=== PATIENT | female | born 1970 | race Caucasian/White ===

== ENCOUNTER → 2017-10-30 08:13 | Outpatient (CLI) | payer OTHER, MEDICAID, SELFPAY ==
--- NOTE | 2017-10-30 08:18 | DI.US.S_ITS ---
PROCEDURE: US OB >= 14 WEEKS FETUS INDICATIONS: ANATOMY OUTSIDE/PRIOR DATING DATA: Last menstrual period (LMP): 06/05/17. LMP-based estimated date of delivery (CHIQUITA): 02/26/18 First dating scan (date and location): 10/30/17 Estimated date of delivery (CHIQUITA) from first dating scan: 02/13/18. TECHNIQUE: Real-time scanning was performed of the fetus, with image documentation and biometric measurements. Endovaginal scanning: No COMPARISON: None. FINDINGS: General: A single living intrauterine gestation is present. Presentation: Breech. Placenta: Placental position is anterior, without previa. Amniotic fluid index: 13.6 cm, normal range is 5-24 cm. heart rate: 137 beats per minute beats per minute. Maternal cervical canal: 4.0 cm long. Normal lower limit is 2.5 cm. biometrics: Biparietal diameter: 24 weeks 5 days Head circumference: 25 weeks Abdominal circumference: 25 weeks 3 days Femur length: 24 weeks Estimated gestational age from initial scan: not applicable. Composite gestational age from present scan: 24 weeks 6 days Estimated weight and percentile: 739 g; 99 percentile Measurement variability for biometric dating: +/- 7 days from 14 weeks to 15 weeks 6 days gestation, +/- 10 days from 16 weeks to 21 weeks 6 days gestation, +/- 2 weeks from 22 weeks to 27 weeks 6 days gestation, +/- 3 weeks for 28 weeks gestation or later. weight reference: 4500 g or EFW >90/95% is considered macrosomia or large for gestational age. EFW <10% is small for gestational age. EFW 5% or less is considered intra-uterine growth restriction. Anatomic survey: Neuro: Ventricles are non-dilated at less than 10 mm. Cisterna magna is normal at 3-11 mm. Cerebellum is normal in size and morphology. Nuchal skin fold: Normal at less than 6 mm between 14-21 weeks gestational age. Face: Nose and lips, facial profile are normal. Spine: No evidence for spina bifida. Heart: 4-chambered heart is present, with normal ventricular outflow tracts. Diaphragm: Diaphragm is intact. Stomach: Left-sided stomach is present. Kidneys: No hydronephrosis. Normal is less than 5 mm in 2nd trimester, less than 7 mm in 3rd trimester. Cord: 3-vessel cord has orthotopic insertion. Bladder: Normal in size. Extremities: All 4 extremities identified. IMPRESSION: 1. Single living IUP present with composite age of 24 weeks 6 days corresponding to ultrasound CHIQUITA of 02/13/18. 2. Normal anatomic survey. Dictated by: Bryson Orozco [facility] Interpreted: Stephanie Reyna MD on 10/30/2017 at 10:30 Approved by: Stephanie Reyna M.D. on 10/30/2017 at 11:21
== END ==
PROVIDERS: PCP Obstetrics & Gynecology; Visit Provider Obstetrics & Gynecology
DX: Z34.92 Encounter for supervision of normal pregnancy, unspecified, second trimester (principal); Z36.89 Encounter for other specified antenatal screening; Z3A.24 24 weeks gestation of pregnancy
CPT/HCPCS: 76811

== ENCOUNTER → 2017-11-28 13:08 | Outpatient (CLI) | payer OTHER, MEDICAID, SELFPAY ==
[2017-11-28 14:39] LABS: Add Manual Diff / Slide Review NO; Basophils Percent Auto 0.6 % (0-2); Eosinophils Percent Auto 0.7 % (2-4); Hemoglobin 12.5 g/dL (12.0-16.0); Mean Corpuscular HGB Conc 34.6 % (30-36); Mean Corpuscular Hemoglobin 31.8 PG (26-34); Mean Corpuscular Volume 91.9 fL (80-100); Neutrophils Absolute Auto 6900 /uL (3000-5900); Neutrophils Percent Auto 77.7 % (50-75); Platelet Count 241 X10^3/uL (150-400); Red Blood Cell Count 3.92 X10^6/uL (4.0-5.2); Red Cell Distribution Width 12.7 % (11.6-14.8); White Blood Cell Count 8.8 X10^3/uL (4.5-11.0)
[2017-11-28 15:15] LABS: GTT (PREG) 1 Hour PP 50gm Dose 139 mg/dL (76-139)
[2017-11-28 15:52] LABS: Hepatitis B Surface Antigen NEGATIVE s/c (NEGATIVE); Rubella Antibody IgG 3.3 IU/mL (>15)
[2017-11-28 16:09] LABS: HIV 1 and 2 Antibody NEGATIVE (NEGATIVE); Hep C Virus Ab w/Reflex Quant NEGATIVE s/c (NEGATIVE)
[2017-11-30 14:15] LABS: HSV 2 IGG AB 9.76 index (< 0.90); HSV1IGG < 0.90 index (< 0.90)
[2017-12-04 09:54] LABS: Rapid Plasma Reagin NON-REACTIVE
== END ==
PROVIDERS: PCP Obstetrics & Gynecology; Visit Provider Obstetrics & Gynecology
DX: Z3A.24 24 weeks gestation of pregnancy (principal); Z34.92 Encounter for supervision of normal pregnancy, unspecified, second trimester; Z34.91 Encounter for supervision of normal pregnancy, unspecified, first trimester
CPT/HCPCS: 80055; 82950; 86695; 86696; 86703; 86787; 86803; 86850; 86900; 86901

== ENCOUNTER → 2018-01-09 10:55 | Outpatient (CLI) | payer OTHER, MEDICAID, SELFPAY ==
[2018-01-10 21:22] LABS: Strep Grp B PCR NEG for Grp B Strep
== END ==
PROVIDERS: PCP Obstetrics & Gynecology; Visit Provider Obstetrics & Gynecology
DX: Z34.83 Encounter for supervision of other normal pregnancy, third trimester (principal); Z3A.35 35 weeks gestation of pregnancy
CPT/HCPCS: 87653

== ENCOUNTER 2018-02-05 00:01 | Observation (INO) | payer OTHER, MEDICAID, SELFPAY | END 2018-02-05 02:35 | disposition home or self-care (01) | PROVIDERS: Admitting Provider Family Medicine; PCP Obstetrics & Gynecology; Visit Provider Family Medicine | DX: O09.813 Supervision of pregnancy resulting from assisted reproductive technology, third trimester (principal); Z3A.37 37 weeks gestation of pregnancy | CPT/HCPCS: 59025; 84112; G0378; G0379 ==

== ENCOUNTER 2018-02-05 03:17 | Inpatient (IN) | payer OTHER, MEDICAID, SELFPAY ==
[2018-02-05 04:13] LABS: Add Manual Diff / Slide Review NO; Basophils Percent Auto 0.3 % (0-2); Eosinophils Percent Auto 1.2 % (2-4); Hematocrit 39.4 % (36-46); Hemoglobin 13.2 g/dL (12.0-16.0); Lymphocytes Percent Auto 14.6 % (25-40); Mean Corpuscular HGB Conc 33.6 % (30-36); Mean Corpuscular Hemoglobin 29.8 PG (26-34); Mean Corpuscular Volume 88.5 fL (80-100); Neutrophils Absolute Auto 10500 /uL (3000-5900); Neutrophils Percent Auto 77.9 % (50-75); Platelet Count 248 X10^3/uL (150-400); Red Blood Cell Count 4.45 X10^6/uL (4.0-5.2); White Blood Cell Count 13.5 X10^3/uL (4.5-11.0)
[2018-02-05] MEDS: LACTATED RINGERS 1,000 ML 100 ML IV ×2 (04:30→10:58)
[2018-02-05] MEDS: CEFAZOLIN 2 GM/100 ML FROZ.PIGGY IV (04:33)
--- NOTE | 2018-02-05 05:07 | SUR.OPER ---
Supine on Padded OR bed, head on pillow, safety belt at thigh, arms secured on padded arm boards at <90 degrees abduction. Bump under right buttock. Legs uncrossed with pillow under knees, gel pad to heels, tape over blanket to lower legs.
--- NOTE | 2018-02-05 05:09 | SUR.OPER ---
male at 0457. 8/9
[2018-02-05 05:37] VITALS: BP 119/66; PULSE 86; RESP 13; TEMP 36.8; O2SAT 99
[2018-02-05 05:40] VITALS: BP 115/67; PULSE 87; RESP 14; TEMP 36.8; O2SAT 100
[2018-02-05 05:45] VITALS: BP 99/71; PULSE 80; RESP 15; TEMP 36.8; O2SAT 100
[2018-02-05 05:55] VITALS: BP 101/65; PULSE 88; RESP 18; TEMP 36.8; O2SAT 100
[2018-02-05 08:48] VITALS: BP 106/64
[2018-02-05] MEDS: KETOROLAC 30 MG/ML VIAL IV ×2 (10:56→17:13)
--- NOTE | 2018-02-05 20:04 | PM.PREOP ---
Pre-operative Note Interval Note Pre-op Check: Yes History & Physical exam performed today by Physician Changes: No
--- NOTE | 2018-02-05 20:04 | PM.GYNOP.1 ---
Operative Date/Time/Diagnoses Date of procedure: 02/05/18 Time of procedure: 05:40 Pre-op diagnosis: 38 weeks gestation Hand presentation Post-op diagnosis: same Procedure: Procedures Operation Date: 02/05/18 04:55 Actual Procedures Side Surgeon p Section Natividad Jimenez MD Indications: 38 weeks gestation Hand and arm presentation Surgeon: Natividad Jimenez Mental Health Orderly: Matthieu Hernandez Anesthesia Type: Spinal Operative Notes Findings: Live male Transverse lie with left arm in the vagina Normal uterus, left tube and ovary Right tube and ovary previously removed Closure Type: primary Specimen(s): other (Cord bloods, placenta) Applied: catheter Estimated blood loss (mL): 500 Blood products transfused: none Procedure in detail: The patient was taken to the operating room where she was placed in the seated position. Spinal anesthesia was administered. She was then placed in the dorsal supine position with a leftward tilt. She was prepped and draped in the usual sterile fashion. A timeout was performed. After spinal analgesia was found to be adequate, a Pfannenstiel skin incision was made 2 fingerbreadths above the pubic symphysis and carried through to the underlying layer fascia. The fascia was nicked in the midline, and the incision extended bilaterally with the Villalba scissors. The superior aspect of the fascial incision was grasped with a Mi clamps, elevated, and the underlying rectus muscles dissected off sharply and bluntly. Attention was then turned to the inferior aspect of this incision which in a similar fashion was grasped with a Mi clamps, elevated, and the underlying rectus muscles dissected off sharply and bluntly. The rectus muscles were in the midline. The peritoneum was identified, grasped between 2 hemostats, and entered sharply with the Metzenbaum scissors. This incision was extended superiorly and inferiorly with good visualization of the bladder. The bladder blade was inserted. The vesicouterine peritoneum was identified, grasped with the pickup, and entered sharply with the Metzenbaum scissors. This incision was extended bilaterally, and the bladder flap was created digitally. The bladder blade was reinserted. The lower uterine segment was incised in a transverse fashion with the scalpel. Upon entering the amniotic sac there was a small amount of meconium-stained amniotic fluid. The infant was found to be in the transverse lie with head to the mother's left, left arm and hand in the vagina, feet in the right upper quadrant. The feet were grasped and the baby was delivered by breech extraction. The nose and mouth were suctioned with bulb suction. The cord was double clamped and cut. The was handed off to waiting RN and RT. The placenta was delivered manually. The uterus was cleared of all clots and debris. The uterine incision was repaired with #1 chromic in a running interlocking fashion, and a second layer the same suture was used for an imbricating layer. The stasis was achieved. The left tube and ovary was examined and was found to be normal. The gutters were cleared of all clots and debris. The bladder flap was reapproximated using 2-0 Vicryl in a running fashion. The parietal peritoneum was closed using 2-0 Vicryl in a running fashion. The fascia was reapproximated using 0 Vicryl in a running fashion. Subcutaneous layer was copiously irrigated with warm normal saline. 5 simple interrupted sutures of 3-0 Vicryl were placed to reapproximate the subcutaneous layer. The skin was closed with 4-0 undyed Vicryl in a subcuticular fashion. Steri-Strips were placed. An Aquacel dressing was placed. The uterus was expressed of a small amount of old blood. Sponge, lap, and instrument counts were correct x-2. The patient tolerated the procedure well, and was taken to PACU in stable condition. Complications: none Post-operative Condition: stable Disposition: PACU Plan for aftercare: To Center after recovery
[2018-02-06] MEDS: IBUPROFEN 200 MG TABLET 600 MG PO (05:52)
[2018-02-06] MEDS: MAG HYDROX/ALUM/SIMETH 30 ML UDC PO (05:54)
[2018-02-06 07:12] LABS: Hematocrit 26.1 % (36-46); Hemoglobin 8.8 g/dL (12.0-16.0)
--- NOTE | 2018-02-06 08:05 | P.PN_ITS ---
Subjective Date Patient Seen: 02/06/18 Time Patient Seen: 08:03 Interval history: Doing well no specific concerns. Vital signs stable throughout the evening. Past the congenital heart screening. TCB is 3.1. Baby 's blood type is A positive mom needs RhoGAM and MMR. Baby is breast feeding okay. Positive bowel movements positive urination. Exam Vital Signs (past 8 hours): Oxygen Delivery Method Room Air Narrative Exam Narrative: Gen.: Alert and oriented x3 no apparent distress. HEENT: NCAT PERRLA tympanic membranes are clear nares are patent oral mucosa is moist no tonsillar hypertrophy neck is supple without lymphadenopathy no thyroid enlargement. Cardio: S1-S2 regular rate and rhythm no murmurs appreciated. Respiratory: Lungs are clear to auscultation no wheezes or crackles normal respiratory effort. Abdomen: Soft nontender no rebound or guarding no liver spleen enlargement no appreciable hernias Extremities: Full range of motion no appreciable weakness no cyanosis or edema. Neurologic: Grossly intact. Objective Labs Result Diagrams: 02/06/18 06:37 Labs: Laboratory Results - last 24 hr 02/06/18 02/06/18 06:37 06:37 Hgb 8.8 L Hct 26.1 L Maternal Bleed Negative Assessment & Plan Plan: Assessment/Plan Narrative: Term infant doing well. Breast-feeding is going good. Weight today 6 lb 4.4 oz. Weight yesterday 612. Breast-feeding is going okay positive bowel movement urination. Continue with care. Anticipate discharge tomorrow
[2018-02-06 14:49] VITALS: BP 106/64; PULSE 88; RESP 18; TEMP 36.8
[2018-02-06] MEDS: RHO(D) IMMUNE GLOBULIN 1,500 UNIT SYRINGE 1500 UNIT IM (14:49)
[2018-02-06] MEDS: MEASLES,MUMPS,RUBELLA VACC/PF 0.5 ML VIAL SUBCUT (14:50)
--- NOTE | 2018-02-07 03:25 | PM.OBDS.1 ---
Discharge Providers Date of admission: 02/05/18 03:17 Primary care physician: Natividad Jimenez MD Consults: 02/05/18 08:02 Consult to [employer] Routine Comment: Discharge provider: Natividad Jimenez MD Discharge Date: 02/06/18 Summary Date Patient Seen: 02/06/18 Time Patient Seen: 13:45 Hospital Course: Patient is a 47-year-old 6 para 4 at 37-,5/7 weeks gestation who presented with ruptured membranes and an arm and hand presentation. She underwent a primary low-transverse section under spinal anesthesia without complication. Her postoperative course was unremarkable and she was discharged home on postop day # 1 to 2 doing very well. was going well. Patient was taking ibuprofen and Tylenol only for pain. She was tolerating a diet. She had voided without the catheter. Peripartum Data Delivery Method: Section Laceration description: None Episiotomy description: None Procedures: Urgent primary low-transverse section Spinal anesthesia complications: none Discharge Diagnosis (1) 37 weeks gestation of : Status: Acute (2) Elderly multigravida: Status: Acute (3) Malpresentation of fetus: Status: Acute (4) S/P primary low transverse : Status: Acute Status at Discharge Functional status at discharge: independent ambulation Overall status at discharge: patient is progressing back to baseline Time Spent with Patient Total time spent providing and/or coordinating discharge services: Less than 30 minutes Objective Labs Result Diagrams: 02/06/18 06:37 Labs: Laboratory Results - last 24 hr 02/06/18 02/06/18 06:37 06:37 Hgb 8.8 L Hct 26.1 L Maternal Bleed Negative Discharge Plan Discharge Plan Patient Disposition: Home Discharge comment: Call with fever, chills, redness or drainage around incision or bleeding vaginally more than a pad in an hour Discharge Med Rec/Prescriptions Prescriptions: No Action No Known Home Medications RF: 0 Follow up/Referrals: Natividad Jimenez MD [Primary Care Provider] - 02/13/18 9:30 am (To see Dr Jimenez on February 13 at 0930am for dressing removal) Provider Discharge Instructions Diet: Diet as Tolerated Activity: No heavy lifting No intercourse Skin/Wound/Dressing Care Report to your healthcare provider any signs of infection, such as:: chills, fever, increased pain and unusual drainage Dressing: Do not remove Visit Report/Discharge Packet Instructions: DI for Stand Alone Forms: Discharge: Care Visit Report Forms: Stroke Signs & Symptoms Discharge Data Primary Care Provider: Natividad Jimenez Attending Provider: Natividad Jimenez Admit Date/Time: 02/05/18 03:17 Discharges patient from system. Discharge Date/Time: 02/06/18 16:00
--- NOTE | 2018-02-07 03:31 | PM.OBHP.1 ---
OB HPI Date/Time Date of admission: 02/05/18 Date Patient Seen: 02/05/18 Time Patient Seen: 03:45 History of Present Condition Chief complaint: labor&delivery : 6 Para: 4 Estimated Date of Delivery: 02/21/18 Estimated Gestational Age (weeks): 37+5 Narrative: Mari Ruelas is a 47 year old female 6 para 4 at 37 and 5 7th weeks gestation who presented with ruptured membranes and an arm/hand presentation Indications Operative indications ( section): malpresentation (Arm/hand presentation) Other reason(s) for admission: Spontaneous rupture of membranes History of Present care: good care, initiated at week # (25 here, prior care) and number of visits (6 in [place]) Dating criteria: LMP confirmed by 1st trimester US Ultrasounds: normal 1st trimester US and normal mid trimester US Obstetrical complications: other (Advanced maternal age) Medical complications: none Preadmission Labs Blood type: B (-) negative -: Antibody screen: negative, GBS status: negative, HBsAG: negative, HIV: negative, HSV 1: negative, HSV 2: positive and RPR/VDLR: negative -: Rubella: not immune and Varicella: not immune HCAB: negative Cell-free DNA: Normal Prior (ies) History: 4 1 ectopic resulting in RSo Evaluation Evaluation Baseline heart rate: 140 Variability: Moderate (11-25) monitor accelerations: Present monitor decelerations: Absent Contraction Frequency (minutes): 5 Uterine Contraction Intensity: Moderate Category of Tracing: I Cervical dilation (cm): 6 station: +1 Laboratory results: Laboratory Tests 02/05/18 02/05/18 02/06/18 03:55 03:55 06:37 WBC 13.5 H RBC 4.45 Hgb 13.2 8.8 L Hct 39.4 26.1 L MCV 88.5 MCH 29.8 MCHC 33.6 RDW 13.0 Plt Count 248 Neut % (Auto) 77.9 H Lymph % (Auto) 14.6 L Swift % (Auto) 6.0 Eos % (Auto) 1.2 L Baso % (Auto) 0.3 Neut # (Auto) 31423 H Blood Type B Negative Antibody Screen Positive Antibody Identification Anti-D Maternal Bleed 02/06/18 06:37 WBC RBC Hgb Hct MCV MCH MCHC RDW Plt Count Neut % (Auto) Lymph % (Auto) Swift % (Auto) Eos % (Auto) Baso % (Auto) Neut # (Auto) Blood Type Antibody Screen Antibody Identification Maternal Bleed Negative Non-invasive Membranes Rupture Test: positive [facility] Social History Smoking Status: Never smoker Meds Home Medications Medication Instructions Recorded Confirmed Type No Known Home Medications 02/05/18 02/05/18 History Allergies Allergy/AdvReac Type Severity Reaction Status Date / Time No Known Drug Allergies Allergy Verified 02/05/18 05:28 Exam Vital Signs (past 8 hours): Oxygen Delivery Method Room Air Narrative Exam Narrative: Generally: A well-developed, well-nourished female, moderate distress secondary to contractions Lungs: Clear to auscultation bilaterally Cardiovascular: Regular rate and rhythm Abdomen: Soft Fundal height: 40 cm Estimated weight 7 lb Vaginal exam: Arm and hand in the vagina Objective Labs Result Diagrams: 02/06/18 06:37 Labs: Laboratory Results - last 24 hr 02/06/18 02/06/18 06:37 06:37 Hgb 8.8 L Hct 26.1 L Maternal Bleed Negative Assessment and Plan (1) 37 weeks gestation of : Current visit: No Status: Acute (2) Elderly multigravida: Current visit: No Status: Acute (3) Malpresentation of fetus: Current visit: No Status: Acute (4) S/P primary low transverse : Current visit: No Status: Acute Plan: Assessment: 47-year-old 6 para 4 at 37 and 5 7th weeks gestation with now presentation with an arm and hand in the vagina In active labor Plan: Urgent Primary low-transverse section The risks, benefits, and alternatives to the procedure were explained to the patient. The risks including bleeding, infection, injury to the bowel, bladder, or ureters. She understands these risks and agrees to proceed. A full capital P AR-Q was held and consent form was signed.
--- NOTE | 2018-02-07 03:40 | P.HPOB_ITS ---
OB HPI Date/Time Date of admission: 02/05/18 Date Patient Seen: 02/05/18 Time Patient Seen: 03:45 History of Present Condition Chief complaint: labor&delivery : 6 Para: 4 Estimated Date of Delivery: 02/21/18 Estimated Gestational Age (weeks): 37+5 Narrative: Mari Ruelas is a 47 year old female 6 para 4 at 37 and 5 7th weeks gestation who presented with ruptured membranes and an arm/hand presentation Indications Operative indications ( section): malpresentation (Arm/hand presentation) Other reason(s) for admission: Spontaneous rupture of membranes History of Present care: good care, initiated at week # (25 here, prior care) and number of visits (6 in [place]) Dating criteria: LMP confirmed by 1st trimester US Ultrasounds: normal 1st trimester US and normal mid trimester US Obstetrical complications: other (Advanced maternal age) Medical complications: none Preadmission Labs Blood type: B (-) negative -: Antibody screen: negative, GBS status: negative, HBsAG: negative, HIV: negative, HSV 1: negative, HSV 2: positive and RPR/VDLR: negative -: Rubella: not immune and Varicella: not immune HCAB: negative Cell-free DNA: Normal Prior (ies) History: 4 1 ectopic resulting in RSo Evaluation Evaluation Baseline heart rate: 140 Variability: Moderate (11-25) monitor accelerations: Present monitor decelerations: Absent Contraction Frequency (minutes): 5 Uterine Contraction Intensity: Moderate Category of Tracing: I Cervical dilation (cm): 6 station: +1 Laboratory results: Laboratory Tests 02/05/18 02/05/18 02/06/18 03:55 03:55 06:37 WBC 13.5 H RBC 4.45 Hgb 13.2 8.8 L Hct 39.4 26.1 L MCV 88.5 MCH 29.8 MCHC 33.6 RDW 13.0 Plt Count 248 Neut % (Auto) 77.9 H Lymph % (Auto) 14.6 L [place] % (Auto) 6.0 Eos % (Auto) 1.2 L Baso % (Auto) 0.3 Neut # (Auto) 14654 H Blood Type B Negative Antibody Screen Positive Antibody Identification Anti-D Maternal Bleed 02/06/18 06:37 WBC RBC Hgb Hct MCV MCH MCHC RDW Plt Count Neut % (Auto) Lymph % (Auto) [place] % (Auto) Eos % (Auto) Baso % (Auto) Neut # (Auto) Blood Type Antibody Screen Antibody Identification Maternal Bleed Negative Non-invasive Membranes Rupture Test: positive [facility] Social History Smoking Status: Never smoker Meds Home Medications Medication Instructions Recorded Confirmed Type No Known Home Medications 02/05/18 02/05/18 History Allergies Allergy/AdvReac Type Severity Reaction Status Date / Time No Known Drug Allergies Allergy Verified 02/05/18 05:28 Exam Vital Signs (past 8 hours): Oxygen Delivery Method Room Air Narrative Exam Narrative: Generally: A well-developed, well-nourished female, moderate distress secondary to contractions Lungs: Clear to auscultation bilaterally Cardiovascular: Regular rate and rhythm Abdomen: Soft Fundal height: 40 cm Estimated weight 7 lb Vaginal exam: Arm and hand in the vagina Objective Labs Result Diagrams: 02/06/18 06:37 Labs: Laboratory Results - last 24 hr 02/06/18 02/06/18 06:37 06:37 Hgb 8.8 L Hct 26.1 L Maternal Bleed Negative Assessment and Plan (1) 37 weeks gestation of : Current visit: No Status: Acute (2) Elderly multigravida: Current visit: No Status: Acute (3) Malpresentation of fetus: Current visit: No Status: Acute (4) S/P primary low transverse : Current visit: No Status: Acute Plan: Assessment: 47-year-old 6 para 4 at 37 and 5 7th weeks gestation with now presentation with an arm and hand in the vagina In active labor Plan: Urgent Primary low-transverse section The risks, benefits, and alternatives to the procedure were explained to the patient. The risks including bleeding, infection, injury to the bowel, bladder , or ureters. She understands these risks and agrees to proceed. A full capital P AR-Q was held and consent form was signed.
== END 2018-02-06 16:00 | disposition home or self-care (01) | DRG 540 ==
PROVIDERS: Admitting Provider Obstetrics & Gynecology; PCP Obstetrics & Gynecology; Visit Provider Obstetrics & Gynecology
PROC: 10D00Z1 Extraction of Products of Conception, Low, Open Approach (ICD-10-PCS; CPT 59514; principal; 2018-02-05 04:55)
DX: O60.14X0 Preterm labor third trimester with preterm delivery third trimester, not applicable or unspecified (principal); O32.2XX0 Maternal care for transverse and oblique lie, not applicable or unspecified; Z37.0 Single live birth; Z3A.37 37 weeks gestation of pregnancy
CPT/HCPCS: 36415; 59025; 59050; 59514; 84112; 85014; 85018; 85025; 85461; 86850; 86870; 86900; 86901; G0378; G0379; J0690; J1100; J1885; J2405; J2790

== ENCOUNTER 2018-02-08 20:56 | Emergency (ER) | payer OTHER, MEDICAID, SELFPAY ==
--- NOTE | 2018-02-08 21:08 | PC.NURSE ---
Attempted to triage pt. Currently . Requested to be triaged in approx 5-10 minutes.
[2018-02-08 21:34] VITALS: BP 123/71; PULSE 95; RESP 16; TEMP 36.8; O2SAT 97
--- NOTE | 2018-02-08 21:54 | PC.NURSE ---
Pt concerned that she has an infection at her csection incision. Pt states that there was redness extending beyond bandage and she had a fever earlier. On exam pt had surgical dressing in place,did not remove at this time. No redness noted.
--- NOTE | 2018-02-08 22:43 | ED.WOUNDLAC ---
HPI - Wound/Laceration General Chief Complaint: Wound/Laceration Stated Complaint: Possible infection csection incision Time Seen by Provider: 02/08/18 22:13 Source: patient Mode of arrival: ambulatory Limitations: no limitations History of Present Illness HPI narrative: Patient is a 47-year-old female who is 3 days post section here for concerns of an infected site. She states that she feels well. This morning she noticed redness on her lower abdomen. She also states that she had a fever of 100.5. No urinary symptoms. States that her vaginal bleeding is greatly improved from the surgery. Does not have any pain. No nausea vomiting. She states that she did send a picture to her OB provider of the redness of her abdomen. Patient told me that the OB provider told her that it would be unlikely for her to develop an infection this soon after the surgery however she should come to the emergency department to be evaluated. Related Data Home Medications Medication Instructions Recorded Confirmed No Known Home Medications 02/05/18 02/05/18 Allergies Allergy/AdvReac Type Severity Reaction Status Date / Time No Known Drug Allergies Allergy Verified 02/05/18 05:28 Review of Systems Constitutional Reports fever(s) (100.5) Cardiovascular Denies chest pain and Denies dyspnea Respiratory Denies dyspnea Gastrointestinal Gastrointestinal: Denies abdominal pain, Denies nausea and Denies vomiting Genitourinary Denies dysuria Musculoskeletal Denies myalgias and Denies arthralgias Integumentary/Breasts Comments: Redness of her lower abdomen Hematologic/Lymphatic Denies easy bleeding and Denies easy bruising [facility] Medical History Healthy adult (Acute) Surgical History No pertinent past surgical history (Acute) Social History Smoking Status: Never smoker Exam Initial Vital Signs Initial Vital Signs: Vital Signs Temperature 98.2 F 02/08/18 21:34 Pulse Rate 95 H 02/08/18 21:34 Respiratory Rate 16 02/08/18 21:34 Blood Pressure 123/71 02/08/18 21:34 Pulse Oximetry 97 02/08/18 21:34 Const General: cooperative, healthy appearing, comfortable, well developed, well groomed and No acute distress Resp Effort & Inspection: normal respiratory effort GI Inspection: non-distended Palpation: soft, No firm and No tender Skin Other: Patient with some increased redness on her lower abdomen left greater than right above the bandage that was placed after her . She did show me the picture from earlier today and the redness that is currently there is much improved from that picture. It is somewhat warm compared to the surrounding skin. After taking down the top portion of the surgical bandage the surgical incision looks well without any drainage. Steri-Strips are in place. Neuro General: alert, awake and oriented x3 Extrem General: normal to inspection and capillary refill normal Psych Appearance: grossly normal and well kempt Course Vital Signs - 8 hr 02/08/18 21:34 02/08/18 23:05 Temperature 98.2 F 98.7 F Pulse Rate 95 H 92 H Respiratory Rate 16 15 Blood Pressure 123/71 131/76 Pulse Oximetry 97 98 MDM - Wound/Laceration MDM Narrative Medical decision making narrative: Patient was afebrile here in the emergency department. Is nontoxic appearing. Does have a slight amount of redness in her left lower abdomen however it is much improved from the picture that she took earlier in the day. Both patient and her was at bedside stated that things were much improved from earlier. I did take down the top portion of the surgical dressing to look at the wound. The wound looks well. No drainage. I did discuss options with the patient to include antibiotics verses watching and waiting for the next 12-24 to 48 hr. I feel that given the fact that the redness has improved. The look of the surgical incision today. The lack of fever here in the emergency department that antibiotics would not be warranted at this time. I felt no crepitus around the area. The patient agrees with this. The patient's agrees with this. We did discuss return precautions. We did discuss things to watch out for to include worsening infections. Patient her both expressed understanding and agreement with plan Discharge Plan Departure Patient Disposition: Home Clinical Impression: Post-operative complication Discharge Date/Time: 02/08/18 23:06 Interventions: ED Discharge Assessment Last Done: 02/08/18 23:05 Activity Restrictions/Additional Instructions: The wound does not appear to be infected currently. If you have a return of the fevers or worsening pain or worsening redness or drainage from the wound you do need to return to the emergency department. Keep all of your scheduled medical appointments. Prescriptions: No Action No Known Home Medications RF: 0
[2018-02-08 23:05] VITALS: BP 131/76; PULSE 92; RESP 15; TEMP 37.1; O2SAT 98
== END 2018-02-08 23:06 | disposition home or self-care (01) ==
PROVIDERS: Emergency Provider Emergency Medicine; PCP Obstetrics & Gynecology
DX: G89.18 Other acute postprocedural pain (principal); Z98.890 Other specified postprocedural states
CPT/HCPCS: 99282; 99283

== ENCOUNTER → 2019-10-03 13:57 | Outpatient (CLI) | payer OTHER, MEDICAID, SELFPAY ==
--- NOTE | 2019-10-03 13:59 | DI.RAD.S_ITS ---
PROCEDURE: XR SHOULDER RT MIN 2V INDICATIONS: right shoulder pain TECHNIQUE: 3 views of the shoulder were acquired. COMPARISON: None. FINDINGS: Bones: No fractures or dislocations. No suspicious bony lesions. Visualized ribs appear intact. Soft tissues: No suspicious soft tissue calcifications. IMPRESSION: Minimal a.c. joint space thinning, no trauma found. Dictated by: Edward Cruz M.D. on 10/03/2019 at 15:06 Approved by: Edward Cruz M.D. on 10/03/2019 at 15:07
== END ==
PROVIDERS: PCP Obstetrics & Gynecology; Referring Provider Nurse Practitioner Family; Visit Provider Nurse Practitioner Family
DX: M25.511 Pain in right shoulder (principal); M12.811 Other specific arthropathies, not elsewhere classified, right shoulder
CPT/HCPCS: 73030

== ENCOUNTER 2019-11-26 07:30 | Outpatient (RCR) | payer OTHER, MEDICAID, SELFPAY ==
--- NOTE | 2019-11-05 18:17 | PT.OIE ---
Current Diagnoses Other specific arthropathies, not elsewhere classified, right shoulder (11/05/19) Pain in right shoulder (11/05/19) Muscle weakness (generalized) (11/05/19) Past Medical History (Last Updated 10/03/19 @ 13:59 by RUDDY Sosa) Healthy adult (Acute) Rotator cuff arthropathy of right shoulder (Acute) Past Surgical History (Last Reviewed 02/09/18 @ 03:23 by Biju Chu DO) No pertinent past surgical history (Acute) Visit Care Team Role Provider Type RUDDY Sosa Attending Provider Advanced Side Stitching Machine Operator Family Provider Primary Care Provider Referring Provider Specialty: Family Practice Address: [address] [place] [address], [facility] Email: [email or web address] Physical Therapy Initial Evaluation PT-OP-A Visit Information Start: 11/05/19 13:26 Freq: Status: Active Protocol: Document 11/05/19 13:35 LRN (Rec: 11/05/19 14:32 LRN [id number]) Out-Patient Physical Therapy Visit Information Visit Information Visit Type Initial Evaluation Visit Start Time 13:35 Visit Stop Time 14:16 Total Visit Minutes 41 Visit Number 1 Evaluation Information Evaluation Date 11/05/19 Precautions Precautions Hx of back pain PT-OP-B Current Condition Start: 11/05/19 13:26 Freq: Status: Active Protocol: Document 11/05/19 13:35 LRN (Rec: 11/05/19 14:32 LRN [id number]) Current Condition History of Current Condition Onset Date 07/2019. Current Complaints Constant R shoulder pain and not able to raise arm. History of Current Condition She is not able to raise her arm and the pain is constant. Insurance won't approve of MRI until PT done. Very painful to lift arm away from body, has throbbing down shoulder along lateral side and thumb. Usage of thumb is difficult due to pain and has strength loss of thumb when extracting at work. Gets tingling and parasthesia, and sometimes shooting pain down the arm. She notes the more she works, the less pain she notices. Worst pain is sleeping and waking in morning . Night pain is 6-7/10, during work 2-3/10. She hurts more at night, with throbbing pain. Has took IBP and used a Flector prescription (NSAID) patch and with a drink and felt much better. Slept for the first time well. She was initially given Naproxin and has been taking it with sometimes IBP for the last 3 weeks with no change in pain. IBP helps decrease pain. Has compensated so much that the muscles of the back have become tight. She states picking up her 20 month old baby up and putting on L side doesn't hurt. Not super painful to hold baby. No hx of MVA, neck injury, or shoulder dysfunction. Prior Treatments and Tests IBP, Naproxin. Self use of Flector (NSAID) patch. Future Testing and Treatments Planned Pt hoping for MRI after PT completed, if needed. 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 The incident occurred while off during Covid 19 pandemic. Has baby, 4 yr old and spouse at home. She has 3 older kids (ages 31, 30, and 29 yrs old) not at home. Treatment Goals Patient/Caregiver Goals Pt goal is: 1) get pain manageable, 2) decrease nighttime pain to 2-3/10 range , 3) reach out without pain, 4) know why she is having pain . Prior Functional Status Baseline Function- ADL's Independent Baseline Function- Mobility Independent Baseline Function- Work/School No difficulties. 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 Current Functional Impairments (Reported) Functional Limitations- ADL's Can't hold wgt of own arm out to side, can lift forward, but not over shoulder hgt. Neck feels tight on R side. Functional Limitations- Work/School Limited at work for reaching out to side. 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 PT-OP-C Subjective Start: 11/05/19 13:26 Freq: Status: Active Protocol: Document 11/05/19 13:35 LRN (Rec: 11/05/19 14:32 LRN [id number]) Patient Questionnaires Quick Dash- Upper Extremity Quick Dash UE Score 65.9 Quick Dash UE Impairment 60 to 79% Impaired (Score 60- 79) PT-OP-E Functional Tests Start: 11/05/19 13:26 Freq: Status: Active Protocol: Document 11/05/19 13:35 LRN (Rec: 11/05/19 17:14 LRN [id number]) Functional Tests Apley's Scratch Test Action 2- Left T4 Action 2- Right T2 Action 3- Left T7 Action 3- Right T12 PT-OP-H Neuro Start: 11/05/19 13:26 Freq: Status: Active Protocol: Document 11/05/19 13:35 LRN (Rec: 11/05/19 17:14 LRN [id number]) Deep Tendon Reflex & Clonus Assessment Deep Tendon Reflex Bilateral Brachioradialis Deep Tendon Reflex 1+ Diminished Bilateral Tricep Deep Tendon Reflex 1+ Diminished Bilateral Bicep Deep Tendon Reflex 0 Absent PT-OP-J Posture/Palpation/Skin Start: 11/05/19 13:26 Freq: Status: Active Protocol: Document 11/05/19 13:35 LRN (Rec: 11/05/19 14:32 LRN [id number]) Posture Evaluation Comments Posture Comments R shoulder is low and retracted. Mild Dowagers hump . Palpation Assessment Location R shoulder Palpation Location R shoulder Palpation Findings Muscle Guarding,Tenderness Palpation Details Supraspinatus is tight and mildly tender. Atrophy Rhomboids. PT-OP-K Range of Motion Start: 11/05/19 13:26 Freq: Status: Active Protocol: Document 11/05/19 13:35 LRN (Rec: 11/05/19 14:32 LRN [id number]) Cervical Spine Range of Motion Cervical Spine Active Degrees Testing Position Sitting Flexion 52 Extension 40 Rotation Left 52 Rotation Right 62 Lateral Flexion Left 38 Lateral Flexion Right 40 ROM Limitations Soft Tissue Tightness Shoulder Goniometric Range of Motion Shoulder Left Passive Shoulder ROM WFL Yes Testing Position Supine Flexion 180 Abduction 180 External Rotation at 90 degrees 100 Abduction Internal Rotation 58 Right Passive Shoulder ROM WFL No Testing Position Sitting Flexion 107 Abduction 70 External Rotation at 45 degrees 30 Abduction Internal Rotation 30 Left Active Shoulder ROM WFL Yes Flexion 180 Abduction 180 Internal Rotation Behind Back (text) T7 Right Active Shoulder ROM WFL No Testing Position Sitting Flexion 91 Abduction 65 Internal Rotation Behind Back (text) T12 Shoulder ROM Limitations Shoulder ROM Limitations Pain Comments R shoulder PROM for ER/IR is arm at 70 deg's AB. PT-OP-L Special Tests Start: 11/05/19 13:26 Freq: Status: Active Protocol: Document 11/05/19 13:35 LRN (Rec: 11/05/19 17:14 LRN [id number]) Special Tests Cervical Spine Special Tests Foraminal Compression Test Results Negative Comments No change in R shoulder pain. Traction Test Results Negative Comments No change in R shoulder pain. Shoulder Special Tests Drop Arm Rotator Cuff Test Results Positive Comments Pt is not able to lower R arm with control. Elevation Impingement Test Results Positive Comments Pain in R shoulder joint PT-OP-M Strength Start: 11/05/19 13:26 Freq: Status: Active Protocol: Document 11/05/19 13:35 LRN (Rec: 11/05/19 14:32 LRN [id number]) Shoulder Strength Shoulder Manual Muscle Testing Right Flexion 2 Poor Extension 5 Normal Abduction (C5) 2- Poor- Adduction 5 Normal External Rotation 2 Poor Internal Rotation 5 Normal Left Comments Generally 5/5 PT-OP-Q Treatments Start: 11/05/19 13:26 Freq: Status: Active Protocol: Document 11/05/19 13:35 LRN (Rec: 11/05/19 17:14 LRN [id number]) Self-Care/Home Management Treatment Education Patient Education Home Exercise Program Activities Self-Care/Home Management Activities Issued & reviewed HEP with handouts for: Neck AROM stretches for Rotation and SB; Shoulder: Rolls, Pendulum, IR stretch with towel and opposite hand, supine Flex and hands behind head ER, table stretch for ER. PT-OP-T Assessment and Plan Start: 11/05/19 13:26 Freq: Status: Active Protocol: Document 11/05/19 13:35 LRN (Rec: 11/05/19 14:32 LRN [id number]) Physical Therapy Assessment Rehab Potential Rehabilitation Potential Good Evaluation Complexity Number of Personal Factors/Comorbidities 1-2 Number of Body Systems Impaired 4 or More Clinical Presentation at Evaluation Evolving Impairments Impairments Activity Tolerance,Functional Activities,Pain,Posture,ROM, Soft Tissue Mobility,Strength Goals Four Impairment Decreased R shoulder strength for lifting and use of hand for work. Short Term Goal (STG) Pt will be able to lift a 1/2 gallon without pain. STG Duration 12/19/19 Online Project Manager Goal (LTG) Pt will be able to lift her baby or 1 gallon milk with minimal pain. LTG Duration 03/04/20 Three Impairment Decreased R shoulder mobility, pt unable to reach arm above shoulder hgt. Short Term Goal (STG) Pt will be able to reach her R shoulder above shoulder hgt ( at least 165 deg's) without pain. STG Duration 12/19/19 Retirement Goal (LTG) Pt will be able to reach out without pain. LTG Duration 03/04/20 Two Impairment R shoulder pain 7/, interfering with sleep without use of pain meds Short Term Goal (STG) Decrease R shoulder pain by 50 % with pt educated in nighttime positioning to decrease onset of pain. STG Duration 12/19/19 Online Project Manager Goal (LTG) Decrease R shoulder pain to a manageable level of 2-3/10 at nighttime. LTG Duration 03/04/20 One Impairment Pt lacks appropriate self care HEP. Online Project Manager Goal (LTG) Pt will be independent in a self care HEP. LTG Duration 03/04/20 Assessment Summary Assessment Pt presents guarded and very limited in R shoulder mobility . At this time the pt was not able to tolerate proper positioning for special testing to adequately assess her condition. She has presentation of a possible R rotator cuff dysfunction or guarding due to possible self shoulder dislocation as per her subjective history and complaints. Once the soft tissue dysfunction can be managed it will become more obvious the extent of her injury. The pt will benefit from skilled physical therapy at this time to reduce soft tissue dysfunction and for postural and activity awareness training. As the pt is able to gain greater mobility we will progress toward strengthening and stabilizing the shoulder. She will benefit from instruction in self care exercise for her neck to reduce the stress at the R shoulder. Physical Therapy Plan Frequency and Duration Frequency of Treatment 2x/Week Plan of Care Start Date 11/05/19 Plan of Care End Date 03/04/20 Therapeutic Interventions Therapeutic Interventions Home Exercise Program,Manual Therapy,Neuromuscular Re- education,Patient/Caregiver Education,Self-Care/Home Management,Soft Tissue Mobilization,Taping, Therapeutic Exercises Modalities Cold Pack/Ice Massage,Electric Stimulation,Hot Packs, Iontophoresis,Ultrasound Other Therapeutic Interventions Iontophoresis of 4mg/mL of Dexamethosone with Sodium Phosphate. Next Visit Focus/Plan Next Note Type Treatment Note Next Visit Plan MH to neck, R shoulder, back during PROM/AROM exercises. Review of last issued home exercises. Active or Isometric strengthening to start. If pt tolerates, assess GHJ mobility. Check sensation.
--- NOTE | 2019-11-05 18:18 | PT.OPPOC ---
Physical, Occupational & Speech Therapy At [facility] Current Diagnoses Other specific arthropathies, not elsewhere classified, right shoulder (11/05/19) Pain in right shoulder (11/05/19) Muscle weakness (generalized) (11/05/19) Visit Care Team Role Provider Type RUDDY Sosa Attending Provider Advanced Process Environmental Technician Family Provider Primary Care Provider Referring Provider Specialty: Family Practice Address: [address] [place] [address], [id number] Email: [email or web address] Plan Of Care PT-OP-T Assessment and Plan Start: 11/05/19 13:26 Freq: Status: Active Protocol: Document 11/05/19 13:35 LRN (Rec: 11/05/19 14:32 LRN [id number]) Physical Therapy Assessment Rehab Potential Rehabilitation Potential Good Evaluation Complexity Number of Personal Factors/Comorbidities 1-2 Number of Body Systems Impaired 4 or More Clinical Presentation at Evaluation Evolving Impairments Impairments Activity Tolerance,Functional Activities,Pain,Posture,ROM, Soft Tissue Mobility,Strength Goals Four Impairment Decreased R shoulder strength for lifting and use of hand for work. Short Term Goal (STG) Pt will be able to lift a 1/2 gallon without pain. STG Duration 12/19/19 Atmospheric Physics Professor Goal (LTG) Pt will be able to lift her baby or 1 gallon milk with minimal pain. LTG Duration 03/04/20 Three Impairment Decreased R shoulder mobility, pt unable to reach arm above shoulder hgt. Short Term Goal (STG) Pt will be able to reach her R shoulder above shoulder hgt ( at least 165 deg's) without pain. STG Duration 12/19/19 Atmospheric Physics Professor Goal (LTG) Pt will be able to reach out without pain. LTG Duration 03/04/20 Two Impairment R shoulder pain 7/10, interfering with sleep without use of pain meds Short Term Goal (STG) Decrease R shoulder pain by 50 % with pt educated in nighttime positioning to decrease onset of pain. STG Duration 12/19/19 Assisted Goal (LTG) Decrease R shoulder pain to a manageable level of 2-3/10 at nighttime. LTG Duration 03/04/20 One Impairment Pt lacks appropriate self care HEP. Atmospheric Physics Professor Goal (LTG) Pt will be independent in a self care HEP. LTG Duration 03/04/20 Assessment Summary Assessment Pt presents guarded and very limited in R shoulder mobility . At this time the pt was not able to tolerate proper positioning for special testing to adequately assess her condition. She has presentation of a possible R rotator cuff dysfunction or guarding due to possible self shoulder dislocation as per her subjective history and complaints. Once the soft tissue dysfunction can be managed it will become more obvious the extent of her injury. The pt will benefit from skilled physical therapy at this time to reduce soft tissue dysfunction and for postural and activity awareness training. As the pt is able to gain greater mobility we will progress toward strengthening and stabilizing the shoulder. She will benefit from instruction in self care exercise for her neck to reduce the stress at the R shoulder. Physical Therapy Plan Frequency and Duration Frequency of Treatment 2x/Week Plan of Care Start Date 11/05/19 Plan of Care End Date 03/04/20 Therapeutic Interventions Therapeutic Interventions Home Exercise Program,Manual Therapy,Neuromuscular Re- education,Patient/Caregiver Education,Self-Care/Home Management,Soft Tissue Mobilization,Taping, Therapeutic Exercises Modalities Cold Pack/Ice Massage,Electric Stimulation,Hot Packs, Iontophoresis,Ultrasound Other Therapeutic Interventions Iontophoresis of 4mg/mL of Dexamethosone with Sodium Phosphate. Next Visit Focus/Plan Next Note Type Treatment Note Next Visit Plan MH to neck, R shoulder, back during PROM/AROM exercises. Review of last issued home exercises. Active or Isometric strengthening to start. If pt tolerates, assess GHJ mobility. Check sensation. Plan of Care Dates Plan of Care Start Date 11/05/19 Plan of Care End Date 03/04/20 Electronically Signed by: Kristen Byrd, PT 11/05/19 [id number] Please Sign and Return: I have reviewed this Plan of Care and certify that the skilled therapy services above are required to meet the patient?s needs. Physician Signature Date Printed Name and Credentials Clinical Instructor Signature Printed Name and Credentials
--- NOTE | 2019-11-19 11:25 | PT.OTN ---
Current Diagnoses Other specific arthropathies, not elsewhere classified, right shoulder (11/19/19) Pain in right shoulder (11/19/19) Muscle weakness (generalized) (11/19/19) Physical Therapy Treatment Note PT-OP-A Visit Information Start: 11/05/19 13:26 Freq: Status: Active Protocol: Document 11/19/19 09:47 MB (Rec: 11/19/19 10:31 MB [id number]) Out-Patient Physical Therapy Visit Information Visit Information Visit Type Treatment Note Visit Start Time 09:47 Visit Stop Time 10:30 Total Visit Minutes 43 Visit Number 2 PT-OP-B Current Condition Start: 11/05/19 13:26 Freq: Status: Active Protocol: Document 11/05/19 13:35 LRN (Rec: 11/05/19 14:32 LRN [id number]) Current Condition History of Current Condition Onset Date 07/2019. Current Complaints Constant R shoulder pain and not able to raise arm. History of Current Condition She is not able to raise her arm and the pain is constant. Insurance won't approve of MRI until PT done. Very painful to lift arm away from body, has throbbing down shoulder along lateral side and thumb. Usage of thumb is difficult due to pain and has strength loss of thumb when extracting at work. Gets tingling and parasthesia, and sometimes shooting pain down the arm. She notes the more she works, the less pain she notices. Worst pain is sleeping and waking in morning . Night pain is 6-7/10, during work 2-3/10. She hurts more at night, with throbbing pain. Has took IBP and used a Flector prescription (NSAID) patch and with a drink and felt much better. Slept for the first time well. She was initially given Naproxin and has been taking it with sometimes IBP for the last 3 weeks with no change in pain. IBP helps decrease pain. Has compensated so much that the muscles of the back have become tight. She states picking up her 20 month old baby up and putting on L side doesn't hurt. Not super painful to hold baby. No hx of MVA, neck injury, or shoulder dysfunction. Prior Treatments and Tests IBP, Naproxin. Self use of Flector (NSAID) patch. Future Testing and Treatments Planned Pt hoping for MRI after PT completed, if needed. 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 The incident occurred while off during Covid 19 pandemic. Has baby, 4 yr old and spouse at home. She has 3 older kids (ages 31, 30, and 29 yrs old) not at home. Treatment Goals Patient/Caregiver Goals Pt goal is: 1) get pain manageable, 2) decrease nighttime pain to 2-3/10 range , 3) reach out without pain, 4) know why she is having pain . Prior Functional Status Baseline Function- ADL's Independent Baseline Function- Mobility Independent Baseline Function- Work/School No difficulties. 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 Current Functional Impairments (Reported) Functional Limitations- ADL's Can't hold wgt of own arm out to side, can lift forward, but not over shoulder hgt. Neck feels tight on R side. Functional Limitations- Work/School Limited at work for reaching out to side. 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 PT-OP-C Subjective Start: 11/05/19 13:26 Freq: Status: Active Protocol: Document 11/19/19 09:47 MB (Rec: 11/19/19 10:31 MB [id number]) OP-PT Subjective Patient Comments Patient Comments Pt does not think that PT is going to help. She has pain down into her right wrist. She calls it right wrist tendinitis. The shoulder is about the same. It is much worse at night and when she wakes up. She is taking Ibuprofen. Pt is a dentist and has been for 30 years. The pain didn't stop until she stopped working d/t COVID. She was carrying around 30 lb son . Pt states that the pain started when she rolled over on her side in the bed. She felt her shoulder pop out and back. She has an orthopedic appointment on 11/27/2019. PT-OP-E Functional Tests Start: 11/05/19 13:26 Freq: Status: Active Protocol: Document 11/05/19 13:35 LRN (Rec: 11/05/19 17:14 LRN [id number]) Functional Tests Apley's Scratch Test Action 2- Left T4 Action 2- Right T2 Action 3- Left T7 Action 3- Right T12 PT-OP-H Neuro Start: 11/05/19 13:26 Freq: Status: Active Protocol: Document 11/05/19 13:35 LRN (Rec: 11/05/19 17:14 LRN [id number]) Deep Tendon Reflex & Clonus Assessment Deep Tendon Reflex Bilateral Brachioradialis Deep Tendon Reflex 1+ Diminished Bilateral Tricep Deep Tendon Reflex 1+ Diminished Bilateral Bicep Deep Tendon Reflex 0 Absent PT-OP-J Posture/Palpation/Skin Start: 11/05/19 13:26 Freq: Status: Active Protocol: Document 11/05/19 13:35 LRN (Rec: 11/05/19 14:32 LRN [id number]) Posture Evaluation Comments Posture Comments R shoulder is low and retracted. Mild Dowagers hump . Palpation Assessment Location R shoulder Palpation Location R shoulder Palpation Findings Muscle Guarding,Tenderness Palpation Details Supraspinatus is tight and mildly tender. Atrophy Rhomboids. PT-OP-K Range of Motion Start: 11/05/19 13:26 Freq: Status: Active Protocol: Document 11/05/19 13:35 LRN (Rec: 11/05/19 14:32 LRN [id number]) Cervical Spine Range of Motion Cervical Spine Active Degrees Testing Position Sitting Flexion 52 Extension 40 Rotation Left 52 Rotation Right 62 Lateral Flexion Left 38 Lateral Flexion Right 40 ROM Limitations Soft Tissue Tightness Shoulder Goniometric Range of Motion Shoulder Left Passive Shoulder ROM WFL Yes Testing Position Supine Flexion 180 Abduction 180 External Rotation at 90 degrees 100 Abduction Internal Rotation 58 Right Passive Shoulder ROM WFL No Testing Position Sitting Flexion 107 Abduction 70 External Rotation at 45 degrees 30 Abduction Internal Rotation 30 Left Active Shoulder ROM WFL Yes Flexion 180 Abduction 180 Internal Rotation Behind Back (text) T7 Right Active Shoulder ROM WFL No Testing Position Sitting Flexion 91 Abduction 65 Internal Rotation Behind Back (text) T12 Shoulder ROM Limitations Shoulder ROM Limitations Pain Comments R shoulder PROM for ER/IR is arm at 70 deg's AB. PT-OP-L Special Tests Start: 11/05/19 13:26 Freq: Status: Active Protocol: Document 11/05/19 13:35 LRN (Rec: 11/05/19 17:14 LRN [id number]) Special Tests Cervical Spine Special Tests Foraminal Compression Test Results Negative Comments No change in R shoulder pain. Traction Test Results Negative Comments No change in R shoulder pain. Shoulder Special Tests Drop Arm Rotator Cuff Test Results Positive Comments Pt is not able to lower R arm with control. Elevation Impingement Test Results Positive Comments Pain in R shoulder joint PT-OP-M Strength Start: 11/05/19 13:26 Freq: Status: Active Protocol: Document 11/05/19 13:35 LRN (Rec: 11/05/19 14:32 LRN [id number]) Shoulder Strength Shoulder Manual Muscle Testing Right Flexion 2 Poor Extension 5 Normal Abduction (C5) 2- Poor- Adduction 5 Normal External Rotation 2 Poor Internal Rotation 5 Normal Left Comments Generally 5/5 PT-OP-Q Treatments Start: 11/05/19 13:26 Freq: Status: Active Protocol: Document 11/19/19 09:47 MB (Rec: 11/19/19 11:25 MB [id number]) Therapeutic Exercises Sitting Exercises R shoulder range Comments Pt demonstrates active flexion right shoulder to 90 deg only Very gentle thoracic lift with right arm supported on pillow Comments Progress this with scapular retraction in the future Cervical flexion, extension, SB, rotation Side bilateral Comments Performed all directions with one plane movement at a time Self-Care/Home Management Treatment Education Other Education Proper sleeping positioning with cervical and arm support, possible use of wrist brace when sleeping to keep wrist and shoulder more neutral, use of ice on right shoulder in a .m., lunch break and in the evening--pt tolerates ice on right shoulder during education and she feels better . Ice on forearm including quick ice exacerbates right arm pain. PT ed pt in PT work- up, possible hyperlaxity contributing to possible right shoulder injury, reviewed shoulder, nerve, labral anatomy, possible orthopedic work-up diagonstics of right shoulder. Concern about cervical spine but given reports of right shoulder pooping out, likely shoulder involvement contributing to forearm symptoms--pt with a lot of anatomical knowledge and self-care awareness as a dentist. Discussed work posture and sitting on the couch with arm supported and letting 20 month old come to her rather than picking him up . PT-OP-T Assessment and Plan Start: 11/05/19 13:26 Freq: Status: Active Protocol: Document 11/19/19 09:47 MB (Rec: 11/19/19 10:31 MB [id number]) Physical Therapy Assessment Rehab Potential Rehabilitation Potential Good Evaluation Complexity Number of Personal Factors/Comorbidities 1-2 Number of Body Systems Impaired 4 or More Clinical Presentation at Evaluation Evolving Impairments Impairments Activity Tolerance,Functional Activities,Pain,Posture,ROM, Soft Tissue Mobility,Strength Goals Four Impairment Decreased R shoulder strength for lifting and use of hand for work. Short Term Goal (STG) Pt will be able to lift a 1/2 gallon without pain. STG Duration 12/19/19 Senior Care Goal (LTG) Pt will be able to lift her baby or 1 gallon milk with minimal pain. LTG Duration 03/04/20 Three Impairment Decreased R shoulder mobility, pt unable to reach arm above shoulder hgt. Short Term Goal (STG) Pt will be able to reach her R shoulder above shoulder hgt ( at least 165 deg's) without pain. STG Duration 12/19/19 Senior Care Goal (LTG) Pt will be able to reach out without pain. LTG Duration 03/04/20 Two Impairment R shoulder pain 7/10, interfering with sleep without use of pain meds Short Term Goal (STG) Decrease R shoulder pain by 50 % with pt educated in nighttime positioning to decrease onset of pain. STG Duration 12/19/19 Senior Care Goal (LTG) Decrease R shoulder pain to a manageable level of 2-3/10 at nighttime. LTG Duration 03/04/20 One Impairment Pt lacks appropriate self care HEP. 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 LTG Duration 03/04/20 Assessment Summary Assessment Pt states that her pain is getting worse. Exercises are not helpful. She reports tingling and throbbing down C6 dermatome right forearm. Pt is hypermobile in left elbow and states that she had hyperlaxity in . Extensive education to pt about positioning, icing, PT, possible work-up including diagnostic testing. PT is concerned about possible labral tear in setting of reports that her shoulder pops out with horizontal abduction . Physical Therapy Plan Frequency and Duration Frequency of Treatment 2x/Week Plan of Care Start Date 11/05/19 Plan of Care End Date 03/04/20 Therapeutic Interventions Therapeutic Interventions Home Exercise Program,Manual Therapy,Neuromuscular Re- education,Patient/Caregiver Education,Self-Care/Home Management,Soft Tissue Mobilization,Taping, Therapeutic Exercises Modalities Cold Pack/Ice Massage,Electric Stimulation,Hot Packs, Iontophoresis,Ultrasound Other Therapeutic Interventions Iontophoresis of 4mg/mL of Dexamethosone with Sodium Phosphate. Next Visit Focus/Plan Next Note Type Treatment Note Next Visit Plan Con't icing, as it helped during treatment. Focus on cervical range exercises, gentle scapular retraction with right arm supported. Active or Isometric strengthening If pt tolerates, assess GHJ mobility. Check sensation.
--- NOTE | 2019-11-26 08:11 | PT.OTN ---
Current Diagnoses Other specific arthropathies, not elsewhere classified, right shoulder (11/26/19) Pain in right shoulder (11/26/19) Muscle weakness (generalized) (11/26/19) Physical Therapy Treatment Note PT-OP-A Visit Information Start: 11/05/19 13:26 Freq: Status: Active Protocol: Document 11/26/19 07:31 MB (Rec: 11/26/19 08:11 MB [id number]) Out-Patient Physical Therapy Visit Information Visit Information Visit Type Treatment Note Visit Note 29' minute treatment d/t pt cannot tolerate therapy except for icing and education. Only charged for education, not for icing during education. Visit Start Time 07:31 Visit Stop Time 08:15 Total Visit Minutes 44 Visit Number 3 PT-OP-B Current Condition Start: 11/05/19 13:26 Freq: Status: Active Protocol: Document 11/05/19 13:35 LRN (Rec: 11/05/19 14:32 LRN [id number]) Current Condition History of Current Condition Onset Date 07/2019. Current Complaints Constant R shoulder pain and not able to raise arm. History of Current Condition She is not able to raise her arm and the pain is constant. Insurance won't approve of MRI until PT done. Very painful to lift arm away from body, has throbbing down shoulder along lateral side and thumb. Usage of thumb is difficult due to pain and has strength loss of thumb when extracting at work. Gets tingling and parasthesia, and sometimes shooting pain down the arm. She notes the more she works, the less pain she notices. Worst pain is sleeping and waking in morning . Night pain is 6-7/10, during work 2-3/10. She hurts more at night, with throbbing pain. Has took IBP and used a Flector prescription (NSAID) patch and with a drink and felt much better. Slept for the first time well. She was initially given Naproxin and has been taking it with sometimes IBP for the last 3 weeks with no change in pain. IBP helps decrease pain. Has compensated so much that the muscles of the back have become tight. She states picking up her 20 month old baby up and putting on L side doesn't hurt. Not super painful to hold baby. No hx of MVA, neck injury, or shoulder dysfunction. Prior Treatments and Tests IBP, Naproxin. Self use of Flector (NSAID) patch. Future Testing and Treatments Planned Pt hoping for MRI after PT completed, if needed. 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 The incident occurred while off during Covid 19 pandemic. Has baby, 4 yr old and spouse at home. She has 3 older kids (ages 31, 30, and 29 yrs old) not at home. Treatment Goals Patient/Caregiver Goals Pt goal is: 1) get pain manageable, 2) decrease nighttime pain to 2-3/10 range , 3) reach out without pain, 4) know why she is having pain . Prior Functional Status Baseline Function- ADL's Independent Baseline Function- Mobility Independent Baseline Function- Work/School No difficulties. 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 Current Functional Impairments (Reported) Functional Limitations- ADL's Can't hold wgt of own arm out to side, can lift forward, but not over shoulder hgt. Neck feels tight on R side. Functional Limitations- Work/School Limited at work for reaching out to side. 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 PT-OP-C Subjective Start: 11/05/19 13:26 Freq: Status: Active Protocol: Document 11/26/19 07:31 MB (Rec: 11/26/19 08:11 MB [id number]) OP-PT Subjective Patient Comments Patient Comments Pt states that her shoulder is the same. She is still putting it through the paces with work and also went kayaking at [employer]. It felt good with the muscle. Pt has constant pain up to 3-4/10 and that sleep is the worse. She does not sit a lot and she does picket labor union her 20 month old with left arm. She has not been icing much even though it helps because she does not have time and she does not sit . PT-OP-E Functional Tests Start: 11/05/19 13:26 Freq: Status: Active Protocol: Document 11/05/19 13:35 LRN (Rec: 11/05/19 17:14 LRN [id number]) Functional Tests Apley's Scratch Test Action 2- Left T4 Action 2- Right T2 Action 3- Left T7 Action 3- Right T12 PT-OP-H Neuro Start: 11/05/19 13:26 Freq: Status: Active Protocol: Document 11/05/19 13:35 LRN (Rec: 11/05/19 17:14 LRN [id number]) Deep Tendon Reflex & Clonus Assessment Deep Tendon Reflex Bilateral Brachioradialis Deep Tendon Reflex 1+ Diminished Bilateral Tricep Deep Tendon Reflex 1+ Diminished Bilateral Bicep Deep Tendon Reflex 0 Absent PT-OP-J Posture/Palpation/Skin Start: 11/05/19 13:26 Freq: Status: Active Protocol: Document 11/05/19 13:35 LRN (Rec: 11/05/19 14:32 LRN [id number]) Posture Evaluation Comments Posture Comments R shoulder is low and retracted. Mild Dowagers hump . Palpation Assessment Location R shoulder Palpation Location R shoulder Palpation Findings Muscle Guarding,Tenderness Palpation Details Supraspinatus is tight and mildly tender. Atrophy Rhomboids. PT-OP-K Range of Motion Start: 11/05/19 13:26 Freq: Status: Active Protocol: Document 11/05/19 13:35 LRN (Rec: 11/05/19 14:32 LRN [id number]) Cervical Spine Range of Motion Cervical Spine Active Degrees Testing Position Sitting Flexion 52 Extension 40 Rotation Left 52 Rotation Right 62 Lateral Flexion Left 38 Lateral Flexion Right 40 ROM Limitations Soft Tissue Tightness Shoulder Goniometric Range of Motion Shoulder Left Passive Shoulder ROM WFL Yes Testing Position Supine Flexion 180 Abduction 180 External Rotation at 90 degrees 100 Abduction Internal Rotation 58 Right Passive Shoulder ROM WFL No Testing Position Sitting Flexion 107 Abduction 70 External Rotation at 45 degrees 30 Abduction Internal Rotation 30 Left Active Shoulder ROM WFL Yes Flexion 180 Abduction 180 Internal Rotation Behind Back (text) T7 Right Active Shoulder ROM WFL No Testing Position Sitting Flexion 91 Abduction 65 Internal Rotation Behind Back (text) T12 Shoulder ROM Limitations Shoulder ROM Limitations Pain Comments R shoulder PROM for ER/IR is arm at 70 deg's AB. PT-OP-L Special Tests Start: 11/05/19 13:26 Freq: Status: Active Protocol: Document 11/05/19 13:35 LRN (Rec: 11/05/19 17:14 LRN [id number]) Special Tests Cervical Spine Special Tests Foraminal Compression Test Results Negative Comments No change in R shoulder pain. Traction Test Results Negative Comments No change in R shoulder pain. Shoulder Special Tests Drop Arm Rotator Cuff Test Results Positive Comments Pt is not able to lower R arm with control. Elevation Impingement Test Results Positive Comments Pain in R shoulder joint PT-OP-M Strength Start: 11/05/19 13:26 Freq: Status: Active Protocol: Document 11/05/19 13:35 LRN (Rec: 11/05/19 14:32 LRN [id number]) Shoulder Strength Shoulder Manual Muscle Testing Right Flexion 2 Poor Extension 5 Normal Abduction (C5) 2- Poor- Adduction 5 Normal External Rotation 2 Poor Internal Rotation 5 Normal Left Comments Generally 5/5 PT-OP-Q Treatments Start: 11/05/19 13:26 Freq: Status: Active Protocol: Document 11/26/19 07:31 MB (Rec: 11/26/19 08:11 MB [id number]) Therapeutic Exercises Sitting Exercises Diaphragm breathing Comments PT demonstrates and pt states that she knows how to perform from yoga Self-Care/Home Management Treatment Education Other Education Ongoing education about body mechanics, at least taking 8 minutes twice a day to ice with arm supported in sitting and to perform diaphragmatic breathing. Extensive discussion about possible underlying issue, potential course for treatment, things to ask doctor tomorrow and PT assessment: poor response to PT intervention including conservative measures like US, exercises, possible labral injury given sxs and hypermobility, overuse. PT-OP-T Assessment and Plan Start: 11/05/19 13:26 Freq: Status: Active Protocol: Document 11/26/19 07:31 MB (Rec: 11/26/19 08:11 MB [id number]) Physical Therapy Assessment Rehab Potential Rehabilitation Potential Good Evaluation Complexity Number of Personal Factors/Comorbidities 1-2 Number of Body Systems Impaired 4 or More Clinical Presentation at Evaluation Evolving Impairments Impairments Activity Tolerance,Functional Activities,Pain,Posture,ROM, Soft Tissue Mobility,Strength Goals Four Impairment Decreased R shoulder strength for lifting and use of hand for work. Short Term Goal (STG) Pt will be able to lift a 1/2 gallon without pain. STG Duration 12/19/19 [facility] Goal (LTG) Pt will be able to lift her baby or 1 gallon milk with minimal pain. LTG Duration 03/04/20 Three Impairment Decreased R shoulder mobility, pt unable to reach arm above shoulder hgt. Short Term Goal (STG) Pt will be able to reach her R shoulder above shoulder hgt ( at least 165 deg's) without pain. STG Duration 12/19/19 [facility]pc Goal (LTG) Pt will be able to reach out without pain. LTG Duration 03/04/20 Two Impairment R shoulder pain 7/10, interfering with sleep without use of pain meds Short Term Goal (STG) Decrease R shoulder pain by 50 % with pt educated in nighttime positioning to decrease onset of pain. STG Duration 12/19/19 [facility] Goal (LTG) Decrease R shoulder pain to a manageable level of 2-3/10 at nighttime. LTG Duration 03/04/20 One Impairment Pt lacks appropriate self care HEP. [facility]pc Goal (LTG) Pt will be independent in a self care HEP. LTG Duration 03/04/20 Assessment Summary Assessment Pt is very reactive to US after 2 minutes. PT had not even had time yet to further adjust settings. Setting 2MHz, low, intensity 3. Her symptoms started after PT moves US head to middle right deltoid. The muscle has increased tension. Pt reports stabbing pain in middle delt area and asks PT to stop US and states she does not want it anymore. PT is able to elicit same sxs with gentle palpation over deltoid. Pt requests to sit up for icing and PT provides support with pillow under right arm and at right side. PT re-ed pt on not picking up 20 month old if possible, sitting position, icing and diaphragm breathing. Pt does spontaneously use right arm to help tie ponytail on the way back to therapy room. She wants mobility back. She was able to kayak. Her spontaneous use of right arm and reports of kayaking womack not match exactly with her reaction to US. Icing during education. This therapist feels that PT course should be put on hold or at least reduced treatment numbers until she has further work-up from orthopedic surgeon. Pt states that she does not think that PT will help and that she has to do PT before getting MRI. Physical Therapy Plan Frequency and Duration Frequency of Treatment 2x/Week Plan of Care Start Date 11/05/19 Plan of Care End Date 03/04/20 Therapeutic Interventions Therapeutic Interventions Home Exercise Program,Manual Therapy,Neuromuscular Re- education,Patient/Caregiver Education,Self-Care/Home Management,Soft Tissue Mobilization,Taping, Therapeutic Exercises Modalities Cold Pack/Ice Massage,Electric Stimulation,Hot Packs, Iontophoresis,Ultrasound Other Therapeutic Interventions Iontophoresis of 4mg/mL of Dexamethosone with Sodium Phosphate. Next Visit Focus/Plan Next Note Type Treatment Note Next Visit Plan Con't icing, as it helped during treatment. Focus on cervical range exercises, gentle scapular retraction with right arm supported. Active or Isometric strengthening If pt tolerates, assess GHJ mobility. Check sensation.
--- NOTE | 2019-11-28 15:07 | PT-OP ANOTE ---
Pt cancelled due to sick spouse; therefore lack of childcare
--- NOTE | 2019-12-16 08:51 | PT-IP ANOTE ---
PT calls pt and leaves message. PT reviewed right shoulder MRI and noted changes including partial tear supraspinatus, chronic labral tear and teres minor edema in setting of other changes. Called pt and left message about PT plan. Asked pt to call back to let PT know about PT course. PT communicated that will d/c pt if call not returned by 12/19/2019.
--- NOTE | 2020-01-22 17:08 | PT.OPDS ---
Current Diagnoses Other specific arthropathies, not elsewhere classified, right shoulder (11/26/19) Pain in right shoulder (11/26/19) Muscle weakness (generalized) (11/26/19) Visit Care Team Role Provider Type RUDDY Sosa Attending Provider [employer] Supervisor Family Provider Primary Care Provider Referring Provider Specialty: Family Practice Address: [address] [place] [address], [id number] Email: [email or web address] Visit Number Visit Number 3 Discharge Summary PT-OP-B Current Condition Start: 11/05/19 13:26 Freq: Status: Active Protocol: Document 11/05/19 13:35 LRN (Rec: 11/05/19 14:32 LRN [id number]) Current Condition History of Current Condition Onset Date 07/2019. Current Complaints Constant R shoulder pain and not able to raise arm. History of Current Condition She is not able to raise her arm and the pain is constant. Insurance won't approve of MRI until PT done. Very painful to lift arm away from body, has throbbing down shoulder along lateral side and thumb. Usage of thumb is difficult due to pain and has strength loss of thumb when extracting at work. Gets tingling and parasthesia, and sometimes shooting pain down the arm. She notes the more she works, the less pain she notices. Worst pain is sleeping and waking in morning . Night pain is 6-7/10, during work 2-3/10. She hurts more at night, with throbbing pain. Has took IBP and used a Flector prescription (NSAID) patch and with a drink and felt much better. Slept for the first time well. She was initially given Naproxin and has been taking it with sometimes IBP for the last 3 weeks with no change in pain. IBP helps decrease pain. Has compensated so much that the muscles of the back have become tight. She states picking up her 20 month old baby up and putting on L side doesn't hurt. Not super painful to hold baby. No hx of MVA, neck injury, or shoulder dysfunction. Prior Treatments and Tests IBP, Naproxin. Self use of Flector (NSAID) patch. Future Testing and Treatments Planned Pt hoping for MRI after PT completed, if needed. 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 The incident occurred while off during Covid 19 pandemic. Has baby, 4 yr old and spouse at home. She has 3 older kids (ages 31, 30, and 29 yrs old) not at home. Treatment Goals Patient/Caregiver Goals Pt goal is: 1) get pain manageable, 2) decrease nighttime pain to 2-3/10 range , 3) reach out without pain, 4) know why she is having pain . Prior Functional Status Baseline Function- ADL's Independent Baseline Function- Mobility Independent Baseline Function- Work/School No difficulties. Baseline Function- Other Could pick and shovel man 4 yr old (40#), 1 gal milk without difficulty. Current Functional Impairments (Reported) Functional Limitations- ADL's Can't hold wgt of own arm out to side, can lift forward, but not over shoulder hgt. Neck feels tight on R side. Functional Limitations- Work/School Limited at work for reaching out to side. 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 PT-OP-C Subjective Start: 11/05/19 13:26 Freq: Status: Active Protocol: Document 11/26/19 07:31 MB (Rec: 11/26/19 08:11 MB [id number]) OP-PT Subjective Patient Comments Patient Comments Pt states that her shoulder is the same. She is still putting it through the paces with work and also went kayaking at [employer]. It felt good with the muscle. Pt has constant pain up to 3-4/10 and that sleep is the worse. She does not sit a lot and she does pick and shovel man her 20 month old with left arm. She has not been icing much even though it helps because she does not have time and she does not sit . PT-OP-E Functional Tests Start: 11/05/19 13:26 Freq: Status: Active Protocol: Document 11/05/19 13:35 LRN (Rec: 11/05/19 17:14 LRN [id number]) Functional Tests Richardey's Scratch Test Action 2- Left T4 Action 2- Right T2 Action 3- Left T7 Action 3- Right T12 PT-OP-H Neuro Start: 11/05/19 13:26 Freq: Status: Active Protocol: Document 11/05/19 13:35 LRN (Rec: 11/05/19 17:14 LRN [id number]) Deep Tendon Reflex & Clonus Assessment Deep Tendon Reflex Bilateral Brachioradialis Deep Tendon Reflex 1+ Diminished Bilateral Tricep Deep Tendon Reflex 1+ Diminished Bilateral Bicep Deep Tendon Reflex 0 Absent PT-OP-J Posture/Palpation/Skin Start: 11/05/19 13:26 Freq: Status: Active Protocol: Document 11/05/19 13:35 LRN (Rec: 11/05/19 14:32 LRN [id number]) Posture Evaluation Comments Posture Comments R shoulder is low and retracted. Mild Dowagers hump . Palpation Assessment Location R shoulder Palpation Location R shoulder Palpation Findings Muscle Guarding,Tenderness Palpation Details Supraspinatus is tight and mildly tender. Atrophy Rhomboids. PT-OP-K Range of Motion Start: 11/05/19 13:26 Freq: Status: Active Protocol: Document 11/05/19 13:35 LRN (Rec: 11/05/19 14:32 LRN [id number]) Cervical Spine Range of Motion Cervical Spine Active Degrees Testing Position Sitting Flexion 52 Extension 40 Rotation Left 52 Rotation Right 62 Lateral Flexion Left 38 Lateral Flexion Right 40 ROM Limitations Soft Tissue Tightness Shoulder Goniometric Range of Motion Shoulder Left Passive Shoulder ROM WFL Yes Testing Position Supine Flexion 180 Abduction 180 External Rotation at 90 degrees 100 Abduction Internal Rotation 58 Right Passive Shoulder ROM WFL No Testing Position Sitting Flexion 107 Abduction 70 External Rotation at 45 degrees 30 Abduction Internal Rotation 30 Left Active Shoulder ROM WFL Yes Flexion 180 Abduction 180 Internal Rotation Behind Back (text) T7 Right Active Shoulder ROM WFL No Testing Position Sitting Flexion 91 Abduction 65 Internal Rotation Behind Back (text) T12 Shoulder ROM Limitations Shoulder ROM Limitations Pain Comments R shoulder PROM for ER/IR is arm at 70 deg's AB. PT-OP-L Special Tests Start: 11/05/19 13:26 Freq: Status: Active Protocol: Document 11/05/19 13:35 LRN (Rec: 11/05/19 17:14 LRN [id number]) Special Tests Cervical Spine Special Tests Foraminal Compression Test Results Negative Comments No change in R shoulder pain. Traction Test Results Negative Comments No change in R shoulder pain. Shoulder Special Tests Drop Arm Rotator Cuff Test Results Positive Comments Pt is not able to lower R arm with control. Elevation Impingement Test Results Positive Comments Pain in R shoulder joint PT-OP-M Strength Start: 11/05/19 13:26 Freq: Status: Active Protocol: Document 11/05/19 13:35 LRN (Rec: 11/05/19 14:32 LRN [id number]) Shoulder Strength Shoulder Manual Muscle Testing Right Flexion 2 Poor Extension 5 Normal Abduction (C5) 2- Poor- Adduction 5 Normal External Rotation 2 Poor Internal Rotation 5 Normal Left Comments Generally 5/5 PT-OP-T Assessment and Plan Start: 11/05/19 13:26 Freq: Status: Active Protocol: Document 01/22/20 17:02 LRN (Rec: 01/22/20 17:08 LRN [id number]) Physical Therapy Assessment Goals Four Impairment Decreased R shoulder strength for lifting and use of hand for work. Short Term Goal (STG) Pt will be able to lift a 1/2 gallon without pain. STG Duration 12/19/19 (01/22/20: Pt was unavailable for final assessment) Penitentiary Goal (LTG) Pt will be able to lift her baby or 1 gallon milk with minimal pain. LTG Duration 03/04/20 (01/22/20: Pt was unavailable for final assessment) Three Impairment Decreased R shoulder mobility, pt unable to reach arm above shoulder hgt. Short Term Goal (STG) Pt will be able to reach her R shoulder above shoulder hgt ( at least 165 deg's) without pain. STG Duration 12/19/19 (01/22/20: Pt was unavailable for final assessment) Concrete Puddler Goal (LTG) Pt will be able to reach out without pain. LTG Duration 03/04/20 (01/22/20: Pt was unavailable for final assessment) Two Impairment R shoulder pain 7/10, interfering with sleep without use of pain meds Short Term Goal (STG) Decrease R shoulder pain by 50 % with pt educated in nighttime positioning to decrease onset of pain. STG Duration 12/19/19 (01/22/20: Pt was unavailable for final assessment) Concrete Puddler Goal (LTG) Decrease R shoulder pain to a manageable level of 2-3/10 at nighttime. LTG Duration 03/04/20 (01/22/20: Pt was unavailable for final assessment) One Impairment Pt lacks appropriate self care HEP. Penitentiary Goal (LTG) Pt will be independent in a self care HEP. LTG Duration 03/04/20 (01/22/20: Pt was unavailable for final assessment) Assessment Summary Assessment Pt was seen for 2 physical therapy treatments, the last treatment on 11/28/19. Attempts to reach the pt by phone were unsuccessful. Message was left that if pt did not return call by 2019 she would be discharged from therapy. Pt has not returned call; therefore will be discharged from therapy due to lack of attendance. Pt was unavailable for final assessment. It should be noted that the pt did not respond well to therapy. Physical Therapy Plan Discharge Physical Therapy Discharge Reasons No Longer Attending PT Discharge Comments Pt is being discharged from therapy due to lack of attendance.
== END 2020-01-23 14:16 ==
LOC: PHYS 07:30
PROVIDERS: Family Provider Nurse Practitioner Family; PCP Nurse Practitioner Family; Referring Provider Nurse Practitioner Family; Visit Provider Nurse Practitioner Family
DX: M12.811 Other specific arthropathies, not elsewhere classified, right shoulder (principal); M25.511 Pain in right shoulder; M62.81 Muscle weakness (generalized)
CPT/HCPCS: 97110; 97162; 97535

== ENCOUNTER → 2019-12-09 07:44 | Outpatient (CLI) | payer OTHER, MEDICAID, SELFPAY ==
--- NOTE | 2019-12-09 | DI.MRI.S_ITS ---
PROCEDURE: MR SHOULDER RT WO CON INDICATIONS: RIGHT SHOULDER PAIN TECHNIQUE: Noncontrast oblique coronal T2 fast spin echo with fat saturation, oblique sagittal T1 spin echo and T2 fast spin echo with fat saturation, axial T1 spin echo and T2 fast spin echo with fat saturation through the shoulder. COMPARISON: None. FINDINGS: Image quality: Excellent. Rotator cuff: Supraspinatus tendinopathy with partial thickness articular sided tear of the critical zone. There is also infraspinatus tendinopathy. Teres minor appears grossly intact. Subscapularis thickening, tendinopathy and interstitial tearing. No atrophy of the rotator cuff muscles. There is teres minor muscle edema, nonspecific etiology. Bones and bursae: No bone marrow contusions or fractures. Moderate acromioclavicular joint degeneration. Glenohumeral joint degeneration, and small joint effusion. Acromion demonstrates conventional anatomy, without an os acromiale. Moderate subacromial-subdeltoid bursitis. Capsule and soft tissues: Labrum: Circumferential macerated tear of the labrum involving the superior posterior and anteroinferior segments. Adjacent glenoid spurring and sclerosis. Long head of the biceps tendon intact. The rotator interval appears normal, without fibrosis. Coracohumeral ligament intact. IMPRESSION: Supraspinatus tendinopathy with partial thickness articular sided tear of the critical zone. Infraspinatus tendinopathy Subscapularis tendinopathy and thickening with interstitial tearing. Moderate subacromial-subdeltoid bursitis Circumferential chronic labral tear with macerated appearance Mild teres minor muscle edema although the exact etiology is unclear. Dictated by: Abhi Cali M.D. on 12/09/2019 at 11:25 Approved by: Abhi Cali M.D. on 12/09/2019 at 11:32
== END ==
PROVIDERS: Family Provider Nurse Practitioner Family; PCP Nurse Practitioner Family; Referring Provider Nurse Practitioner Family; Visit Provider Physician Assistant
DX: M25.511 Pain in right shoulder (principal); M19.011 Primary osteoarthritis, right shoulder; M75.111 Incomplete rotator cuff tear or rupture of right shoulder, not specified as traumatic; M75.51 Bursitis of right shoulder; S43.491A Other sprain of right shoulder joint, initial encounter
CPT/HCPCS: 73221

== ENCOUNTER → 2022-10-28 08:26 | Outpatient (CLI) | payer OTHER, MEDICAID, SELFPAY ==
[2022-10-28 09:10] LABS: Monotest Negative (Negative)
[2022-10-28 09:15] LABS: COVID-19 CEPHEID 4-PLEX PCR Negative (Negative); Influenza A - CEPHEID Flu A NEGATIVE (NEGATIVE); Influenza B - CEPHEID Flu B NEGATIVE (NEGATIVE); Respiratory Syncytial Virus Negative (Negative)
== END ==
PROVIDERS: Family Provider Nurse Practitioner Family; PCP Nurse Practitioner Family; Referring Provider Nurse Practitioner Family; Visit Provider Nurse Practitioner Family
DX: J02.9 Acute pharyngitis, unspecified (principal); R53.83 Other fatigue; Z20.822 Contact with and (suspected) exposure to COVID-19
CPT/HCPCS: 0241U; 36415; 86318; 87070; 87880; C9803

== ENCOUNTER → 2022-11-15 10:42 | Outpatient (CLI) | payer OTHER, MEDICAID, SELFPAY ==
[2022-11-15 11:23] LABS: Appearance Urine UA CLEAR; Bilirubin Urine UA NEGATIVE (NEGATIVE); Color Urine UA YELLOW; Glucose Urine UA NEGATIVE (Negative); Ketones Urine UA NEGATIVE (NEGATIVE); Leukocyte Esterase Urine UA NEGATIVE (NEGATIVE); Nitrite Urine UA NEGATIVE (Negative); Occult Blood Urine UA NEGATIVE (Negative); Protein Urine UA NEGATIVE (Negative); Urobilinogen Urine UA 0.2 E.U./dL (0.2)
[2022-11-15 11:41] LABS: Bacteria Urine Occasional (0-1); Culture Indicated Urine Specimen Cultured; RBC Urine 1-5/HPF (0-5/HPF); Squamous Epithelial Cell Urine 1-5 /HPF (0-5/HPF); WBC Urine 5-10/HPF (0-5/HPF)
== END ==
PROVIDERS: Family Provider Nurse Practitioner Family; PCP Nurse Practitioner; Referring Provider Nurse Practitioner; Visit Provider Nurse Practitioner
DX: N88.8 Other specified noninflammatory disorders of cervix uteri (principal); R30.0 Dysuria
CPT/HCPCS: 81001; 87070; 87086; 87205

== ENCOUNTER → 2022-11-24 06:41 | Outpatient (CLI) | payer OTHER, MEDICAID, SELFPAY ==
--- NOTE | 2022-11-24 06:42 | DI.US.S_ITS ---
PROCEDURE: US PELVIC COMPLETE INDICATIONS: PELVIC AND ABDOMEN PAIN WITH DISTENTION TECHNIQUE: Real-time scanning was performed of the pelvic organs, with image documentation. Additional endovaginal scanning was necessary due to incomplete visualization of the adnexal and endometrial structures by transabdominal scanning. COMPARISON: [facility], US, US ABDOMEN LIMITED, 11/24/2022, 7:07. FINDINGS: Uterus: Uterus is anteverted and normal in size at 7.4 x 3.4 x 5 cm. The myometrium is heterogeneous. The endometrium measures 3 mm combined thickness. No abnormal vascularity can be seen along the endometrial stripe. Ovaries: The right ovary is surgically absent. The left ovary is not seen. No adnexal masses are seen on either side. Other: No pathologic free abdominal or pelvic fluid. Prominent pelvic vessels are seen, which appeared augment with Valsalva maneuver. 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 We strive to produce accurate, complete, and clear reports of imaging services. To assist us in improving patient care, this report was composed using standard report templates and voice recognition software. Therefore, it may contain abnormal punctuation, insertions and/or omissions. Occasional wrong-word or sound-alike substitutions may occur. Though we review the report and make efforts to correct it, we do recommend that the report be read carefully in proper context to recognize any text inaccuracies. Dictated by: Wai Chamberlain M.D. on 11/24/2022 at 9:37 Approved by: Wai Chamberlain M.D. on 11/24/2022 at 9:38
--- NOTE | 2022-11-24 06:42 | DI.US.S_ITS ---
PROCEDURE: US ABDOMEN LIMITED INDICATIONS: PELVIC AND ABDOMEN PAIN WITH DISTENTION, please evaluate for hernia. TECHNIQUE: Real-time focused scanning was performed of the abdomen, with image documentation. COMPARISON: [facility], , PELVIC COMPLETE, 11/24/2022, 7:13. FINDINGS: Scanning is performed at the areas of clinical concern. No hernias or abdominal wall masses are seen. No abnormal fluid collections can be seen. No enlarged lymph nodes can be seen on these images. IMPRESSION: No hernias are seen. Dictated by: Wai Chamberlain M.D. on 11/24/2022 at 10:12 Approved by: Wai Chamberlain M.D. on 11/24/2022 at 10:13
== END ==
PROVIDERS: Family Provider Nurse Practitioner Family; PCP Nurse Practitioner; Referring Provider Nurse Practitioner; Visit Provider Nurse Practitioner
DX: R10.2 Pelvic and perineal pain (principal); N88.8 Other specified noninflammatory disorders of cervix uteri; R10.9 Unspecified abdominal pain; R14.0 Abdominal distension (gaseous)
CPT/HCPCS: 76705; 76830; 76856